=== PATIENT | female | born 1965 | race Caucasian/White ===

== ENCOUNTER 2016-11-11 23:28 | Emergency (ER) | payer MEDICAID ==
[~2016-11-11] VITALS: Ht 162.6 cm; Wt 78.0 kg
[~2016-11-11 23:28] MED LIST: AMOX1TAB16 PO; BUSP10TA3 PO; CARI350T PO; DESI10TA3 PO; DOCU-150 PO; HYDR-519 PO; HYDR2TAB4 PO; HYDR2TAB7 PO; IBUP-1509 PO; LEVO25TA54 PO; METH1TAB2 PO; ONDA4TAB50 PO; OXYC5TAB84 PO; PANT40SU2 PO; QUET200T PO; SERT100T PO; TRAZ150T78 PO; [UNRECOGNIZED DRUG - OTHER] PO
[2016-11-12] MEDS ORDERED: IBUPROFEN 600MG TABLET PO ONE (00:15)
[2016-11-12 02:00] VITALS: BP 127/90
== END 2016-11-12 02:08 | disposition home or self-care (01) ==
LOC: ER 23:53
DX: S93.402A Sprain of unspecified ligament of left ankle, initial encounter (principal); V89.2XXA Person injured in unspecified motor-vehicle accident, traffic, initial encounter; Y93.89 Activity, other specified; Y92.89 Other specified places as the place of occurrence of the external cause; Y99.8 Other external cause status
CPT/HCPCS: 71010; 73610; 99284; Z7610

== ENCOUNTER 2017-03-04 12:53 | Emergency (ER) | payer MEDICAID ==
[~2017-03-04] VITALS: Ht 162.6 cm; Wt 102.0 kg
[~2017-03-04 12:53] MED LIST changes: -IBUP-1509 PO; +IBUP-2028 PO; +LEVO25TA2 PO; -LEVO25TA54 PO; +OXYC-579 PO; -OXYC5TAB84 PO
[2017-03-04] MEDS ORDERED: KETOROLAC 60MG/2ML VIAL IM ONE (15:00)
[2017-03-04 16:09] VITALS: BP 136/77
== END 2017-03-04 17:47 | disposition home or self-care (01) ==
LOC: ER 12:53
DX: S16.1XXA Strain of muscle, fascia and tendon at neck level, initial encounter (principal); S39.012A Strain of muscle, fascia and tendon of lower back, initial encounter; M25.511 Pain in right shoulder; R07.2 Precordial pain; K21.9 Gastro-esophageal reflux disease without esophagitis; F41.9 Anxiety disorder, unspecified; F32.9 Major depressive disorder, single episode, unspecified; F20.9 Schizophrenia, unspecified; V89.2XXA Person injured in unspecified motor-vehicle accident, traffic, initial encounter; Y93.89 Activity, other specified; Y92.410 Unspecified street and highway as the place of occurrence of the external cause; Y99.8 Other external cause status
CPT/HCPCS: 71020; 72100; 72125; 73030; 96372; 99284; J1885; J7030; Z7610

== ENCOUNTER 2018-04-10 01:29 | Inpatient (IN) | payer MEDICAID ==
[~2018-04-10] VITALS: Ht 152.4 cm; Wt 90.7 kg
[~2018-04-10 01:29] MED LIST changes: -CARI350T PO; +S350 PO
[2018-04-10] MEDS ORDERED: KETOROLAC 30MG/ML VIAL IV ONE (04:00)
[2018-04-10] MEDS ORDERED: ONDANSETRON HCL 4MG/2ML INJ IV ONE (04:00)
[2018-04-10] MEDS ORDERED: ASPIRIN 81MG TABLET PO ONE ×2 (04:00→06:00)
[2018-04-10 04:52] LABS: BASOPHILS % 0.3 % (0.0-2.0); HEMOGLOBIN. 13.2 g/dL (12.0-16.0); LYMPHOCYTES % 11.3 % (20.0-50.0); MEAN CORPUSCULAR HEMOGLOBIN 30.8 pg (28.0-32.0); MEAN CORPUSCULAR VOLUME 93.3 fL (81.0-99.0); MEAN PLATELET VOLUME 9.9 fl (7.4-10.4); MONOCYTES % 4.4 % (2.0-8.0); PLATELET 262 x1000/uL (130-400); RED BLOOD CELL COUNT 4.29 mill/uL (4.2-5.4); RED CELL DISTRIBUTION WIDTH 13.5 % (11.6-14.6)
[2018-04-10 05:00] LABS: CHLORIDE 99 mEq/L (98-107)
[2018-04-10] MEDS ORDERED: LORAZEPAM 2MG/ML CPJ IV ONE (05:30)
[2018-04-10 05:41] LABS: *AMPHETAMINES SCREEN URINE NEGATIVE (NEGATIVE); *BARBITURATES SCREEN URINE NEGATIVE (NEGATIVE)
[2018-04-10 05:42] LABS: *BENZODIAZEPINES SCREEN URINE NEGATIVE (NEGATIVE); *COCAINE SCREEN URINE NEGATIVE (NEGATIVE); CANNABINOID URINE SCREEN NEGATIVE (NEGATIVE); METHADONE URINE SCREEN NEGATIVE (NEGATIVE); OPIATES URINE SCREEN PRESUMTIVE POSITIVE (NEGATIVE); PHENCYCLIDINE URINE SCREEN NEGATIVE (NEGATIVE)
[2018-04-10] MEDS ORDERED: ENOXAPARIN 100MG/ML SYR SUBCUT ONE (06:00)
[2018-04-10] MEDS ORDERED: METOPROLOL TARTRATE 25MG TABLET PO SCH (09:15)
[2018-04-10] MEDS: NITROGLYCERIN OINT 1GM/INCH UDPKT TD SCH ×3 (09:26→21:04)
[2018-04-10] MEDS: ASPIRIN 81MG TABLET PO SCH (09:26)
[2018-04-10] MEDS ORDERED: SODIUM POLYSTYRENE SULFONATE 15 G/60 ML BOT PO NR (10:15)
[2018-04-10] MEDS ORDERED: HYDROCODONE/ACETAMINOPHEN 5/325MG TABLET PO NR (14:30)
[2018-04-10] MEDS ORDERED: IOHEXOL-350 100 ML BOTTLE ONE (15:00)
[2018-04-10 15:37] VITALS: BP 125/68
[2018-04-10] MEDS ORDERED: AM500 MT (16:49)
[2018-04-10] MEDS: ONDANSETRON HCL 4MG/2ML INJ IV PRN (17:12)
[2018-04-10 20:00] VITALS: BP 115/74
[2018-04-10] MEDS ORDERED: CEFTRIAXONE 1,000 MG in DEXTROSE 5% WATER 50 ML IV SCH (20:00)
[2018-04-10] MEDS: PANTOPRAZOLE 40MG DR TABLET PO SCH (20:30)
[2018-04-10] MEDS ORDERED: NON FORMULARY PATIENT HOME MED XX SCH (20:30)
[2018-04-10] MEDS ORDERED: ONDANSETRON HCL 4MG TABLET PO PRN (20:30)
[2018-04-10] MEDS: METOPROLOL TARTRATE 25MG TABLET PO SCH (21:04)
[2018-04-10] MEDS: ATORVASTATIN CALCIUM 10MG TABLET PO SCH (21:04)
[2018-04-10] MEDS: CARISOPRODOL 350 MG TABLET PO PRN (21:04)
[2018-04-10] MEDS: HYDROCODONE/ACETAMINOPHEN 10/325MG TABLET PO PRN (21:05)
[2018-04-10] MEDS: AZITHROMYCIN 500 MG TABLET PO SCH (21:24)
[2018-04-10] MEDS: QUETIAPINE FUMARATE 100MG TABLET PO SCH (21:24)
[2018-04-10] MEDS: CEFTRIAXONE 1 G PREMIX 50 ML IV SCH (21:24)
[2018-04-10] MEDS: TRAZODONE HCL 100MG TABLET PO SCH (21:25)
[2018-04-11] VITALS (7 sets, daily range): BP systolic 91–119; BP diastolic 38–83
[2018-04-11] MEDS: ONDANSETRON HCL 4MG/2ML INJ IV PRN ×2 (00:57→10:28)
[2018-04-11] MEDS: NITROGLYCERIN OINT 1GM/INCH UDPKT TD SCH ×3 (06:25→21:07)
[2018-04-11] MEDS: LEVOTHYROXINE SODIUM 25MCG TABLET PO SCH (06:42)
[2018-04-11] MEDS: PANTOPRAZOLE 40MG DR TABLET PO SCH (06:42)
[2018-04-11 06:44] LABS: BASOPHILS % 0.3 % (0.0-2.0); EOSINOPHILS % 0.4 % (0.0-5.0); HEMATOCRIT. 38.3 % (36.0-48.0); HEMOGLOBIN. 12.7 g/dL (12.0-16.0); LYMPHOCYTES % 17.6 % (20.0-50.0); MEAN CORPUSCULAR HEMOGLOBIN 31.2 pg (28.0-32.0); MEAN CORPUSCULAR VOLUME 93.8 fL (81.0-99.0); MEAN PLATELET VOLUME 9.9 fl (7.4-10.4); MONOCYTES % 7.6 % (2.0-8.0); NEUTROPHILS % 74.1 % (40.0-76.0); PLATELET 177 x1000/uL (130-400); RED BLOOD CELL COUNT 4.08 mill/uL (4.2-5.4); RED CELL DISTRIBUTION WIDTH 13.8 % (11.6-14.6)
[2018-04-11] MEDS: METOPROLOL TARTRATE 25MG TABLET PO SCH ×2 (09:00→20:26)
[2018-04-11 10:03] LABS: CHLORIDE 102 mEq/L (98-107)
[2018-04-11] MEDS: QUETIAPINE FUMARATE 100MG TABLET PO SCH (10:03)
[2018-04-11] MEDS: SERTRALINE HCL 100MG TABLET PO SCH (10:04)
[2018-04-11] MEDS: ASPIRIN 81MG TABLET PO SCH (10:05)
[2018-04-11] MEDS: HYDROCODONE/ACETAMINOPHEN 10/325MG TABLET PO PRN ×2 (10:17→20:26)
[2018-04-11] MEDS: CARISOPRODOL 350 MG TABLET PO PRN ×2 (10:20→20:26)
[2018-04-11 12:12] LABS: CLARITY URINE CLOUDY (CLEAR); COLOR URINE YELLOW (YELLOW); KETONES URINE 1+ (NEGATIVE); LEUKOCYTE ESTERASE URINE 2+ (NEGATIVE); NITRITE URINE NEGATIVE (NEGATIVE); OCCULT BLOOD URINE TRACE (NEGATIVE); PROTEIN URINE NEGATIVE (NEGATIVE); SPECIFIC GRAVITY URINE 1.015 (1.005-1.030); UROBILINOGEN URINE 0.2 E.U./dL (0.2-1.0)
[2018-04-11] MEDS ORDERED: ACETAMINOPHEN 325MG TABLET PO PRN (12:30)
[2018-04-11] MEDS ORDERED: POTASSIUM CHLORIDE 20MEQ TABLET SR PO NR (12:45)
[2018-04-11] MEDS ORDERED: REGADENOSON 0.4 MG/5 ML IV NR (14:00)
[2018-04-11] MEDS ORDERED: LORAZEPAM 0.5MG TABLET PO NR (14:00)
[2018-04-11] MEDS: AZITHROMYCIN 500 MG TABLET PO SCH (20:26)
[2018-04-11] MEDS: CEFTRIAXONE 1 G PREMIX 50 ML IV SCH (20:26)
[2018-04-11] MEDS: ATORVASTATIN CALCIUM 10MG TABLET PO SCH (20:31)
[2018-04-11] MEDS: TRAZODONE HCL 100MG TABLET PO SCH (20:31)
[2018-04-11] MEDS: LORAZEPAM 0.5MG TABLET PO PRN (23:23)
[2018-04-12] VITALS: BP 101/62
[2018-04-12 04:00] VITALS: BP 118/67
[2018-04-12] MEDS: CARISOPRODOL 350 MG TABLET PO PRN ×2 (04:10→12:27)
[2018-04-12] MEDS: HYDROCODONE/ACETAMINOPHEN 10/325MG TABLET PO PRN ×2 (04:38→09:22)
[2018-04-12] MEDS: NITROGLYCERIN OINT 1GM/INCH UDPKT TD SCH (06:30)
[2018-04-12] MEDS: PANTOPRAZOLE 40MG DR TABLET PO SCH (06:30)
[2018-04-12] MEDS: LEVOTHYROXINE SODIUM 25MCG TABLET PO SCH (06:38)
[2018-04-12 08:00] VITALS: BP 120/66
[2018-04-12 08:01] LABS: BASOPHILS % 0.5 % (0.0-2.0); EOSINOPHILS % 1.4 % (0.0-5.0); HEMATOCRIT. 34.6 % (36.0-48.0); HEMOGLOBIN. 11.5 g/dL (12.0-16.0); MEAN CORPUSCULAR HEMOGLOBIN 31.6 pg (28.0-32.0); MEAN PLATELET VOLUME 9.9 fl (7.4-10.4); NEUTROPHILS % 67.1 % (40.0-76.0); PLATELET 188 x1000/uL (130-400); RED BLOOD CELL COUNT 3.64 mill/uL (4.2-5.4); RED CELL DISTRIBUTION WIDTH 13.5 % (11.6-14.6)
[2018-04-12 08:19] LABS: CHLORIDE 104 mEq/L (98-107)
[2018-04-12] MEDS: METOPROLOL TARTRATE 25MG TABLET PO SCH (08:39)
[2018-04-12] MEDS: ASPIRIN 81MG TABLET PO SCH (08:39)
[2018-04-12] MEDS: QUETIAPINE FUMARATE 100MG TABLET PO SCH (08:39)
[2018-04-12] MEDS: ONDANSETRON HCL 4MG/2ML INJ IV PRN (09:22)
[2018-04-12] MEDS: SERTRALINE HCL 100MG TABLET PO SCH (09:22)
[2018-04-12] MEDS ORDERED: REGADENOSON 0.4 MG/5 ML IV ONE (11:06)
[2018-04-12 12:00] VITALS: BP 118/78
[2018-04-12] MEDS: LORAZEPAM 0.5MG TABLET PO PRN (12:27)
[2018-04-12 12:56] VITALS: BP 118/76
== END 2018-04-12 16:11 | disposition home or self-care (01) | DRG 720 ==
LOC: ER 01:29 → 7WST 05:53 → ENRESERV 14:20 → CANBEDREQ 19:55
PROVIDERS: ADMIT Internal Medicine; ATTEND Internal Medicine
DX: A41.9 Sepsis, unspecified organism (principal); I21.4 Non-ST elevation (NSTEMI) myocardial infarction; E87.1 Hypo-osmolality and hyponatremia; E87.5 Hyperkalemia; R13.10 Dysphagia, unspecified; F20.9 Schizophrenia, unspecified; I11.9 Hypertensive heart disease without heart failure; R00.0 Tachycardia, unspecified; F32.9 Major depressive disorder, single episode, unspecified; E66.9 Obesity, unspecified; E87.6 Hypokalemia; F17.200 Nicotine dependence, unspecified, uncomplicated; F41.9 Anxiety disorder, unspecified; K21.9 Gastro-esophageal reflux disease without esophagitis; K76.0 Fatty (change of) liver, not elsewhere classified; N39.0 Urinary tract infection, site not specified; Z79.899 Other long term (current) drug therapy; Z90.49 Acquired absence of other specified parts of digestive tract; Z68.39 Body mass index [BMI] 39.0-39.9, adult
CPT/HCPCS: 36415; 71045; 71275; 74177; 78452; 80048; 80061; 80305; 83735; 83880; 84132; 84443; 84484; 93005; 93017; 93306; 93970; 96374; 96375; 99285; A9500; J0696; J1650; J1885; J2060; J2405; J2785; J7050; J7060; Q9967

== ENCOUNTER 2018-09-26 12:09 | Emergency (ER) | payer MEDICAID ==
[~2018-09-26] VITALS: Ht 154.9 cm; Wt 70.0 kg
[~2018-09-26 12:09] MED LIST changes: +AM500 MT; -AMOX1TAB16 PO; -BUSP10TA3 PO; -DESI10TA3 PO; -DOCU-150 PO; -HYDR2TAB4 PO; -HYDR2TAB7 PO; -IBUP-2028 PO
[2018-09-26 13:07] LABS: BASOPHILS % 1.1 % (0.0-2.0); EOSINOPHILS % 2.3 % (0.0-5.0); HEMATOCRIT. 36.3 % (36.0-48.0); HEMOGLOBIN. 12.2 g/dL (12.0-16.0); LYMPHOCYTES % 29.1 % (20.0-50.0); MEAN CORPUSCULAR VOLUME 95.5 fL (81.0-99.0); MEAN PLATELET VOLUME 9.8 fl (7.4-10.4); MONOCYTES % 6.3 % (2.0-8.0); NEUTROPHILS % 61.2 % (40.0-76.0); PLATELET 238 x1000/uL (130-400); RED BLOOD CELL COUNT 3.81 mill/uL (4.2-5.4); RED CELL DISTRIBUTION WIDTH 13.2 % (11.6-14.6)
[2018-09-26 13:14] LABS: CHLORIDE 106 mEq/L (98-107)
[2018-09-26 13:16] LABS: ETHANOL BLOOD < 10 mg/dL; INR 0.9; PARTIAL THROMBOPLASTIN TIME 24.4 sec (23.4-31.0); PROTHROMBIN TIME 9.4 sec (9.6-11.0)
[2018-09-26 13:21] LABS: *AMPHETAMINES SCREEN URINE NEGATIVE (NEGATIVE); *BARBITURATES SCREEN URINE NEGATIVE (NEGATIVE); *BENZODIAZEPINES SCREEN URINE NEGATIVE (NEGATIVE); *COCAINE SCREEN URINE NEGATIVE (NEGATIVE); METHADONE URINE SCREEN NEGATIVE (NEGATIVE)
[2018-09-26 13:22] LABS: CANNABINOID URINE SCREEN NEGATIVE (NEGATIVE); OPIATES URINE SCREEN PRESUMTIVE POSITIVE (NEGATIVE); PHENCYCLIDINE URINE SCREEN NEGATIVE (NEGATIVE)
[2018-09-26 15:45] VITALS: BP 120/82
== END 2018-09-26 15:50 | disposition home or self-care (01) ==
LOC: ER 12:09
DX: S16.1XXA Strain of muscle, fascia and tendon at neck level, initial encounter (principal); R42 Dizziness and giddiness; E03.9 Hypothyroidism, unspecified; Z85.9 Personal history of malignant neoplasm, unspecified; Z90.49 Acquired absence of other specified parts of digestive tract; Z98.890 Other specified postprocedural states; W01.0XXA Fall on same level from slipping, tripping and stumbling without subsequent striking against object, initial encounter; Y93.89 Activity, other specified; Y92.89 Other specified places as the place of occurrence of the external cause
CPT/HCPCS: 36415; 71045; 80305; 80320; 81025; 83735; 83880; 84484; 93005; 99284; G0480

== ENCOUNTER 2021-02-20 02:08 | Emergency (ER) | payer MEDICAID ==
[~2021-02-20] VITALS: Ht 152.4 cm; Wt 89.0 kg
[~2021-02-20 02:08] MED LIST changes: -AM500 MT; +AMOX-494 MT; +CARI350T28 PO; +OXYC-485 PO; -OXYC-579 PO; -S350 PO
[2021-02-20] MEDS ORDERED: MORPHINE SULFATE 2 MG/ML CPJ (NOT FOR IM USE) IV ONE (03:15)
[2021-02-20] MEDS ORDERED: SODIUM CHLORIDE 0.9% 1,000 ML IV ONE (03:15)
[2021-02-20 03:51] LABS: CHLORIDE 104 mEq/L (98-107)
[2021-02-20 03:53] LABS: BASOPHILS % 0.5 % (0.0-2.0); EOSINOPHILS % 1.3 % (0.0-5.0); HEMOGLOBIN. 13.8 g/dL (12.0-16.0); LYMPHOCYTES % 34.6 % (20.0-50.0); MEAN CORPUSCULAR HEMOGLOBIN 30.7 pg (28.0-32.0); MEAN CORPUSCULAR VOLUME 91.2 fL (81.0-99.0); MEAN PLATELET VOLUME 9.7 fl (7.4-10.4); MONOCYTES % 6.4 % (2.0-8.0); NEUTROPHILS % 57.2 % (40.0-76.0); PLATELET 247 x1000/uL (130-400); RED CELL DISTRIBUTION WIDTH 13.5 % (11.6-14.6)
[2021-02-20] MEDS ORDERED: IOHEXOL-350 100 ML BOTTLE ONE (06:42)
[2021-02-20 07:55] VITALS: BP 131/82
[2021-02-20] MEDS ORDERED: KETOROLAC 30MG/ML VIAL IV ONE (08:00)
== END 2021-02-20 08:55 | disposition home or self-care (01) ==
LOC: ER 02:20
DX: R07.9 Chest pain, unspecified (principal); K21.9 Gastro-esophageal reflux disease without esophagitis; E03.9 Hypothyroidism, unspecified; Z85.9 Personal history of malignant neoplasm, unspecified; Z90.49 Acquired absence of other specified parts of digestive tract; Z98.890 Other specified postprocedural states
CPT/HCPCS: 36415; 71045; 71275; 80053; 83880; 84484; 85025; 93005; 96361; 96374; 96375; 99285; J1885; J2270; J7030; Q9967

== ENCOUNTER 2022-12-03 23:15 | Emergency (ER) | payer MEDICAID ==
[~2022-12-03] VITALS: Ht 165.1 cm; Wt 89.0 kg
[~2022-12-03 23:15] MED LIST changes: -AMOX-494 MT; +ASPI-1406 MT; +GABA-532 PO; +SULF1TAB48 MT
[2022-12-03 23:51] VITALS: BP 139/82; PULSE 78; RESP 16; TEMP 99; O2SAT 97
[2022-12-04 01:05] LABS: BASOPHILS % 0.5 % (0.0-2.0); EOSINOPHILS % 1.9 % (0.0-5.0); HEMATOCRIT. 40.2 % (36.0-48.0); MEAN CORPUSCULAR HEMOGLOBIN 29.7 pg (28.0-32.0); MEAN CORPUSCULAR HGB CONC 32.4 g/dL (31.0-37.0); MEAN CORPUSCULAR VOLUME 91.6 fL (81.0-99.0); MEAN PLATELET VOLUME 8.9 fl (7.4-10.4); MONOCYTES % 6.9 % (2.0-8.0); NEUTROPHILS % 61.7 % (40.0-76.0); PLATELET 229 x1000/uL (130-400); RED BLOOD CELL COUNT 4.39 mill/uL (4.2-5.4); RED CELL DISTRIBUTION WIDTH 13.6 % (11.6-14.6); WHITE BLOOD COUNT 7.5 x1000/uL (4.5-11.0)
[2022-12-04] MEDS ORDERED: HYDROCODONE/ACETAMINOPHEN 5/325MG TABLET PO ONE (01:30)
[2022-12-04 01:47] LABS: POTASSIUM 3.9 mEq/L (3.5-5.1); SODIUM 141 mEq/L (136-145)
[2022-12-04 01:48] LABS: ALBUMIN 3.8 g/dL (3.4-5.0); ASPARTATE AMINOTRANSFERASE 11 IU/L (15-37); BILIRUBIN TOTAL 0.5 mg/dL (0.1-1.0); CALCIUM 9.6 mg/dL (8.5-10.1); CARBON DIOXIDE 28 mEq/L (21-32); CHLORIDE 106 mEq/L (98-107); CREATININE 0.8 mg/dL (0.6-1.3); GLUCOSE 102 mg/dL (70-105); PROTEIN TOTAL 7.7 g/dL (6.0-8.3); UREA NITROGEN BLOOD 18 mg/dL (7-21)
[2022-12-04 01:49] LABS: TROPONIN I HIGH SENSITIVITY 41 ng/L (<54)
[2022-12-04 01:50] LABS: PHOSPHORUS 3.9 mg/dL (2.5-4.9)
[2022-12-04 02:07] LABS: ALANINE AMINOTRANSFERASE 20 IU/L (13-61)
[2022-12-04] MEDS ORDERED: ACET-2708 MT (03:37)
[2022-12-04] MEDS ORDERED: HYDROCODONE/ACETAMINOPHEN 5/325MG TABLET PO NR (03:45)
== END 2022-12-04 04:09 | disposition home or self-care (01) ==
LOC: ER 23:15
DX: R00.2 Palpitations (principal); R31.9 Hematuria, unspecified; F17.200 Nicotine dependence, unspecified, uncomplicated; I49.3 Ventricular premature depolarization; Z79.899 Other long term (current) drug therapy; Z90.49 Acquired absence of other specified parts of digestive tract; Z98.890 Other specified postprocedural states
CPT/HCPCS: 36415; 71045; 80053; 83735; 84100; 84484; 85025; 93005; 99285

== ENCOUNTER 2023-03-29 23:14 | Emergency (ER) | payer MEDICAID ==
[~2023-03-29] VITALS: Ht 152.4 cm; Wt 82.0 kg
[~2023-03-29 23:14] MED LIST changes: +ACET-2708 MT
[2023-03-29 23:49] VITALS: O2SAT 97
[2023-03-30] MEDS ORDERED: KETOROLAC 30MG/ML VIAL IM ONE (02:15)
[2023-03-30 02:31] VITALS: BP 115/80
[2023-03-30] MEDS ORDERED: LIDO700A15 TP (03:12)
[2023-03-30] MEDS ORDERED: NAPR-1176 MT (03:12)
[2023-03-30 03:48] VITALS: PULSE 81; RESP 18; TEMP 98.3
== END 2023-03-30 03:51 | disposition home or self-care (01) ==
LOC: ER 23:40
DX: M54.50 Low back pain, unspecified (principal); Z79.899 Other long term (current) drug therapy
CPT/HCPCS: 81025; 99283; 72110; 96372; J1885; Z7610